=== PATIENT | male | born 1940 | race Caucasian/White ===

== ENCOUNTER 2019-10-18 14:52 | Emergency (ER) | payer MEDICARE ==
[~2019-10-18] VITALS: Ht 162.6 cm; Wt 63.5 kg
--- NOTE | 2019-10-18 15:04 | NUR ---
DR RODRIGUEZ AT BEDSIDE FOR EVAL.
--- NOTE | 2019-10-18 15:14 | NUR ---
STARTED IV LINE. UNABLE TO COLLECT BLOOD. DIALYSIS CHIEF EQUIPMENT TECHNICIAN AT BEDSIDE FOR BLOOD DRAW.
[2019-10-18] MEDS ORDERED: BLOO-668 IN (15:23)
[2019-10-18] MEDS ORDERED: FINA5TAB3 PO (15:23)
[2019-10-18] MEDS ORDERED: NA P133E RC (15:23)
[2019-10-18] MEDS ORDERED: ACET-868 PO (15:23)
[2019-10-18] MEDS ORDERED: ATEN50TA PO (15:23)
[2019-10-18] MEDS ORDERED: SITA50TA PO (15:23)
[2019-10-18] MEDS ORDERED: MAGN400O6 PO (15:23)
[2019-10-18] MEDS ORDERED: ATOR10TA PO (15:23)
[2019-10-18] MEDS ORDERED: METO25TA20 PO (15:23)
[2019-10-18] MEDS ORDERED: MULT-447 PO (15:23)
[2019-10-18] MEDS ORDERED: ASPI-1152 PO (15:23)
[2019-10-18] MEDS ORDERED: APIX5TAB PO (15:23)
[2019-10-18] MEDS ORDERED: SENN-168 PO (15:23)
[2019-10-18] MEDS ORDERED: LINA5TAB PO (15:23)
[2019-10-18] MEDS ORDERED: BISA10SU11 RC (15:23)
[2019-10-18] MEDS ORDERED: ACET-2605 PO (15:23)
[2019-10-18] MEDS ORDERED: AMLO5TAB9 PO (15:23)
[2019-10-18 15:27] LABS: BASOPHILS # (AUTO) 0.1 /CMM (0.0-0.2); BASOPHILS % (AUTO) 0.9 % (0.0-2.0); EOSINOPHILS % (AUTO) 0.1 % (0.0-6.0); HEMATOCRIT 35 % (39-51); HEMOGLOBIN 11.3 g/dL (13.5-17.5); LYMPHOCYTES # (AUTO) 0.2 /CMM (0.8-4.8); LYMPHOCYTES % (AUTO) 3.3 % (20.0-44.0); MEAN CORPUSCULAR HGB CONC 32 g/dl (31.0-36.0); MEAN CORPUSCULAR VOLUME 94 fL (80-96); MONOCYTES # (AUTO) 0.2 /CMM (0.1-1.30); MONOCYTES % (AUTO) 3.5 % (2.0-12.0); NEUTROPHILS # (AUTO) 6.1 /CMM (1.8-8.9); NEUTROPHILS % (AUTO) 92.2 % (43.0-81.0); PLATELET COUNT (AUTO) 159 /CMM (150-450); RED BLOOD CELL COUNT(AUTO) 3.76 MIL/uL (4.5-6.0); WHITE BLOOD COUNT (AUTO) 6.6 K/uL (4.3-11.0)
[2019-10-18 15:37] LABS: CALCIUM, SERUM 7.9 mg/dL (8.5-10.1); CARBON DIOXIDE 27 mmol/L (21-32); CHLORIDE 105 mmol/L (98-107); CREATININE 4.3 mg/dL (0.6-1.3); GLUCOSE 76 mg/dL (74-106); POTASSIUM 3.8 mmol/L (3.5-5.1); SODIUM SERUM 141 mmol/L (136-145); UREA NITROGEN, BLOOD 36 mg/dL (7-18)
--- NOTE | 2019-10-18 15:40 | NUR ---
PT TO RADIOLOGY FOR HEAD CT SCAN VIA [facility].
[2019-10-18 15:49] LABS: ALANINE AMINOTRANSFERASE 9 U/L (12-78); ALBUMIN 1.9 g/dL (3.4-5.0); ALKALINE PHOSPHATASE 144 U/L (46-116); ASPARTATE AMINOTRANSFERASE 19 U/L (15-37); B-TYPE NATRIURETIC PEPTIDE 31132 PG/ML (0-125); BILIRUBIN,DIRECT 0.3 mg/dL (0.0-0.2); BILIRUBIN,TOTAL 0.7 mg/dL (0.2-1.0); TOTAL PROTEIN, SERUM 5.3 g/dL (6.4-8.2)
[2019-10-18] MEDS ORDERED: CEFTRIAXONE 1GM BAG (ER ONLY) 1 GM/50 ML PIGGYBACK IV ONE (16:30)
[2019-10-18] MEDS ORDERED: AZITHROMYCIN 500 MG in IV D5W 250 ML IV ONE (16:30)
[2019-10-18] MEDS ORDERED: CEFTRIAXONE 2 G in IV D5W 100 ML IV ONE (17:00)
--- NOTE | 2019-10-18 17:55 | NUR ---
MOVE SHEET SUBMITTED
--- NOTE | 2019-10-18 18:42 | NUR ---
Cecilia alonzo in [facility] - 10/18/19 at 1844 by BRAVO ACCEPTED AT [place] [address] YARBROUGH
--- NOTE | 2019-10-18 18:44 | NUR ---
CALLED [phone] JESSICA ACCEPTED AT [place] [address] YARBROUGH
--- NOTE | 2019-10-18 19:12 | NUR ---
REPORT GIVEN TO ELECTRONIC GAMING DEVICE SUPERVISOR SOPHY MEJIA FOR [facility].
--- NOTE | 2019-10-18 21:10 | NUR ---
PT ACCEPTED TO [facility] BY DR MATTHEW, BED 559. # FOR REPORT [phone]
--- NOTE | 2019-10-18 21:16 | NUR ---
[facility] CALLED FOR [facility]SP[facility]. ETA 45 MINUTES. TRIP# [id number]
[2019-10-18] MEDS ORDERED: DEXTROSE 50%-WATER 50 ML DISP.SYRIN ONE (21:27)
--- NOTE | 2019-10-18 21:28 | NUR ---
PT'S BLOOD SUGAR LOW AT 18, RECHECKED AND IT WAS 17. DR. RODRIGUEZ NOTIFIED. PT IS [id number].
[2019-10-18 21:34] VITALS: BP 93/48
--- NOTE | 2019-10-18 21:50 | NUR ---
REPORT GIVEN TO SHAREE BECKETT OF [facility] FOR [facility].
[2019-10-18] MEDS ORDERED: DEXTROSE 50%-WATER 50 ML DISP.SYRIN IVP ONE (22:00)
--- NOTE | 2019-10-18 22:07 | NUR ---
REPORT GIVEN TO [facility] TEAM FOR [facility]. AND TRANSFER RESPONSIBILITIES.
== END 2019-10-18 22:12 | disposition short-term general hospital (02) ==
LOC: ER 15:06
DX: J18.9 Pneumonia, unspecified organism (principal); R41.82 Altered mental status, unspecified; I48.91 Unspecified atrial fibrillation; N40.0 Benign prostatic hyperplasia without lower urinary tract symptoms; E11.22 Type 2 diabetes mellitus with diabetic chronic kidney disease; I12.0 Hypertensive chronic kidney disease with stage 5 chronic kidney disease or end stage renal disease; N18.6 End stage renal disease; Z99.2 Dependence on renal dialysis; Z86.73 Personal history of transient ischemic attack (TIA), and cerebral infarction without residual deficits; Z79.82 Long term (current) use of aspirin; Z79.84 Long term (current) use of oral hypoglycemic drugs; Z79.899 Other long term (current) drug therapy
CPT/HCPCS: 36415; 70450; 71045; 80048; 80076; 82962 ×2; 83880; 85025; 93005 ×2; 96365; 96367; 96375; 99285; J0456; J0696; J7060 ×2